=== PATIENT | female | born 1985 | race Caucasian/White ===

== ENCOUNTER 2017-08-26 18:03 | Emergency (ER) | payer SELFPAY ==
[~2017-08-26] VITALS: Ht 165.1 cm; Wt 98.0 kg
[2017-08-26] MEDS ORDERED: MEDS FOR DEPRESSION (18:20)
[2017-08-26] MEDS ORDERED: IBUPROFEN TABLET 200 MG TAB PO ONE (18:30)
--- NOTE | 2017-08-26 18:39 | ED General ---
General Chief Complaint: Cough/Cold/Flu Symptoms Stated Complaint: HEADACHE, FEVERISH Nursing Triage Note: AMB TO ROOM HAS BEEN SICK SINCE THURSDAY. WITH COUGH CONGESTION ,AND HEADACHE NEEDS NOTE FOR WORK. Nursing Sepsis Screen: No Definite Risk Source of Information: Patient Exam Limitations: No Limitations History of Present Illness Date Seen by Provider: Aug 26, 2017 Time Seen by Provider: 18:10 Initial Comments This 32 year old woman presents to the ER with complaints of flu-like symptoms including cough, congestion, headaches, sore throat and fever. She has been ill for 4 days. Tachycardia is noted but she is afebrile. She has not had any medications since about noon. She has been asleep for the last 5 hours. She complains of tight muscles in the shoulder girdle and neck. She has a throbbing left-sided headache at present. She reports her oral intake of fluids has been good and she has been urinating normally. Allergies and Home Medications Allergies Coded Allergies: No Known Drug Allergies (Unverified , 08/26/17) Home Medications [Meds For Depression] , (Reported) Constitutional: see HPI EENTM: see HPI Respiratory: see HPI Cardiovascular: see HPI Gastrointestinal: no symptoms reported Genitourinary: no symptoms reported Musculoskeletal: see HPI Skin: no symptoms reported Psychiatric/Neurological: See HPI Hematologic/Lymphatic: No Symptoms Reported Past Dtxdjir-Dgeorm-Uqfpxv Hx Patient Social History Alcohol Use: Occasionally Uses Recreational Drug Use: No Smoking Status: Never a Smoker Recent Foreign Travel: No Contact w/Someone Who Travel: No Recent Infectious Disease Expo: No Surgeries History of Surgeries: Yes Surgeries: Eye Surgery Respiratory History of Respiratory Disorde: No Cardiovascular History of Cardiac Disorders: No Neurological History of Neurological Disord: No Reproductive System : No Genitourinary History of Genitourinary Disor: No Gastrointestinal History of Gastrointestinal Di: No Musculoskeletal History of Musculoskeletal Dis: No Endocrine History of Endocrine Disorders: No HEENT History of HEENT Disorders: No Cancer History of Cancer: No Psychosocial History of Psychiatric Problem: Yes Behavioral Health Disorders: Depression Integumentary History of Skin or Integumenta: No Physical Exam Vital Signs Vital Signs - First Documented 08/26/17 18:07 Temp 97.6 Pulse 120 Resp 18 B/P (MAP) 127/91 (103) Pulse Ox 98 Capillary Refill : Less Than 3 Seconds General Appearance: WD/WN, Mild Distress (tearful) HEENT: PERRL/EOMI, TMs Normal, Normal ENT Inspection, Other (oropharynx somewhat dry and pasty without erythema) Neck: Normal Inspection, Supple Respiratory: Lungs Clear, Normal Breath Sounds, No Accessory Muscle Use, No Respiratory Distress Cardiovascular: No Edema, No Murmur, Tachycardia (regular) Gastrointestinal: Non Tender, Soft Extremity: Normal Inspection Neurologic/Psychiatric: Alert, Oriented x3, No Motor/Sensory Deficits, passenger agent II- XII Norm as Tested, Other (anxious, tearful) Skin: Normal Color, Warm/Dry Progress/Results/Core Measures Suspected Sepsis Recent Fever Within 48 Hours: No Infection Criteria Present: None New/Unexplained Altered Menta: No Sepsis Screen: No Definite Risk Sepsis Diagnosis: SIRS Temperature:97.6 Pulse: 12 Respiratory Rate: Blood Pressure 127 /91 Mean: 103 Results/Orders Micro Results Microbiology 08/26/17 Influenza Types A,B Antigen (MOIRA) - Final, Complete My Orders Orders - TAMERA RICE MD Influenza A And B Antigens (08/26/17 18:26) Tramadol Tablet (Ultram Tablet) (08/26/17 18:30) Ibuprofen Tablet (Motrin Tablet) (08/26/17 18:30) Medications Given in ED Current Medications Medications Dose Ordered Sig/Brennen Route Start Time Stop Time Status Last Admin Dose Admin Ibuprofen 600 mg ONCE ONCE PO 08/26/17 18:30 08/26/17 18:31 DC 08/26/17 18:37 600 MG Tramadol HCl 50 mg ONCE ONCE PO 08/26/17 18:30 08/26/17 18:31 DC 08/26/17 18:37 50 MG Vital Signs/I&O Vital Sign - Last 12Hours 08/26/17 18:07 Temp 97.6 Pulse 120 Resp 18 B/P (MAP) 127/91 (103) Pulse Ox 98 Capillary Refill : Less Than 3 Seconds Blood Pressure Mean: 103 Progress Note #1: Time: 18:38 Progress Note This patient was strongly encouraged to have IV fluids and workup because of the tachycardia. She refused IV or needles of any kind because "I hate needles ". She would like something for her headache. Ibuprofen and tramadol was administered. Influenza screen is pending. One of her main concerns is obtaining a note for work. Progress Note #2: Time: 19:27 Progress Note Patient had improvement in symptoms with Tylenol and Ultram. She fell sleep in the exam room. Heart rate did improve to around 100. Departure Impression Impression: Primary Impression: Flu-like symptoms Additional Impression: Acute headache Qualified Codes: R51 - Headache Disposition: 01 HOME, SELF-CARE Condition: Improved Departure-Patient Inst. Decision time for Depature: 19:27 Referrals: NO,LOCAL PHYSICIAN (PCP/Family) Primary Care Physician Patient Instructions: Flu, Adult (DC) Add. Discharge Instructions: Your symptoms are likely due to influenza or a similar virus. Drink plenty of clear liquids. You may take ibuprofen up to 600 mg every 6 hours as needed for pain or fever. Add Tylenol (acetaminophen) up to 1000 mg every 6 hours as needed for additional relief. For pain not improved with Tylenol and ibuprofen , consider using Ultram (tramadol) as prescribed. You may return to work tomorrow if you remain fever free (temperature under 100) and symptoms continue to improve. All discharge instructions reviewed with patient and/or family. Voiced understanding. Work/School Note: Work Release Form Date Seen in the Emergency Department: Aug 26, 2017 Return to Work: Aug 27, 2017 Restrictions: Return-No Fever (24hrs) TAMERA RICE MD Aug 26, 2017 18:39
[2017-08-26] MEDS ORDERED: TRAM-42 PO (19:33)
[2017-08-26 19:40] VITALS: BP 127/91
== END 2017-08-26 19:40 | disposition home or self-care (01) ==
LOC: ER 18:06
DX: J11.1 Influenza due to unidentified influenza virus with other respiratory manifestations (principal); R51 Headache; F32.9 Major depressive disorder, single episode, unspecified
CPT/HCPCS: 87804; 99283

== ENCOUNTER 2017-10-28 14:42 | Emergency (ER) | payer SELFPAY ==
[~2017-10-28 14:42] MED LIST: MEDS FOR DEPRESSION; TRAM-42 PO
== END 2017-10-28 15:31 | disposition left against medical advice (07) ==
LOC: EDUNIT# 14:42 → ER 14:44
DX: G43.909 Migraine, unspecified, not intractable, without status migrainosus (principal); R05 Cough; R09.81 Nasal congestion

== ENCOUNTER 2018-01-31 21:06 | Inpatient (IN) | payer SELFPAY ==
[~2018-01-31] VITALS: Ht 165.1 cm; Wt 85.3 kg
[2018-01-31] MEDS ORDERED: ZIPRASIDONE 20 MG INJ (GEODON) VIAL IM ONE (21:10)
[2018-01-31] MEDS ORDERED: WATER (STERILE) FOR INJECTION 20 ML ONE (21:10)
[2018-01-31 21:26] LABS: BASOPHILS # (AUTO) 0.1 10^3/uL (0.0-0.1); BASOPHILS % (AUTO) 1 % (0-10); EOSINOPHILS # (AUTO) 0.2 10^3/uL (0.0-0.3); EOSINOPHILS % (AUTO) 2 % (0-10); HEMATOCRIT 44 % (35-52); HEMOGLOBIN 14.6 G/DL (11.5-16.0); LYMPHOCYTES # (AUTO) 2.6 X 10^3 (1.0-4.0); LYMPHOCYTES % (AUTO) 23 % (12-44); MEAN CORPUSCULAR HEMOGLOBIN 28 PG (25-34); MEAN CORPUSCULAR HGB CONC 34 G/DL (32-36); MEAN CORPUSCULAR VOLUME 83 FL (80-99); MEAN PLATELET VOLUME 9.4 FL (7.4-10.4); MONOCYTES % (AUTO) 9 % (0-12); NEUTROPHILS # (AUTO) 7.3 X 10^3 (1.8-7.8); NEUTROPHILS % (AUTO) 66 % (42-75); PLATELET COUNT 503 10^3/uL (130-400); RED BLOOD COUNT 5.24 10^6/uL (4.35-5.85); RED CELL DISTRIBUTION WIDTH 13.5 % (10.0-14.5); WHITE BLOOD COUNT 11.2 10^3/uL (4.3-11.0)
--- NOTE | 2018-01-31 21:37 | ED Psychosocial ---
General Chief Complaint: Psych/Social Disorder Stated Complaint: ANXIETY Nursing Triage Note: PT EMILY IN BY EMS WITH COMPLAINT OF ANXIETY AND PSYCHOTIC BREAK. Source: patient Exam Limitations: clinical condition (JENNIFER OROZCO MD) History of Present Illness Date Seen by Provider: Jan 31, 2018 Time Seen by Provider: 21:06 Initial Comments Here by EMS with episode of acute psychosis and uncontrollable crying related to the fact that she is going to lose her children to the Court because of methamphetamine abuse. She last used methamphetamine and marijuana yesterday. She is uncontrollably crying. She states it all just doesn't matter anymore. Reports that she is methamphetamine because she is given a lose her children but also reports that she is losing her children for methamphetamine abuse. Denies suicidal ideation or homicidal ideations just states nothing really matters any more history Limited due to patient's current emotional state. Timing/Duration: this morning Severity: severe Associated Symptoms: anxiety, impaired concentration (JENNIFER OROZCO MD) Allergies and Home Medications Allergies Coded Allergies: No Known Drug Allergies (Unverified , 08/26/17) Home Medications Tramadol HCl 50 Mg Tablet, 50 MG PO Q6H PRN for PAIN-MODERATE TO SEVERE Prescribed by: TAMERA LOPEZ on 08/26/17 193 Patient Home Medication List Home Medication List Reviewed: Yes (JENNIFER OROZCO MD) Constitutional: see HPI; No chills; diaphoresis; No fever Respiratory: no symptoms reported Cardiovascular: no symptoms reported Psychiatric/Neurological: See HPI, Anxiety, Depressed, Emotional Problems Unable to complete review of systems due to uncontrollable hysteria (JENNIFER OROZCO MD) Past Qmoisgl-Xawzwb-Rnguxk Hx Past Med/Social Hx: Reviewed Nursing Past Med/Soc Hx (JENNIFER OROZCO MD) Patient Social History Alcohol Use: Denies Use Recreational Drug Use: Yes (methamphetamine and marijuana) Smoking Status: Never a Smoker Recent Foreign Travel: No Contact w/Someone Who Travel: No Recent Infectious Disease Expo: No (JENNIFER OROZCO MD) Past Medical History Surgeries: Yes Eye Surgery Respiratory: No Cardiac: No Neurological: No Genitourinary: No Gastrointestinal: No Musculoskeletal: No Endocrine: No HEENT: No Cancer: No Psychosocial: Yes Depression Integumentary: No (JENNIFER OROZCO MD) Family Medical History Reviewed Nursing Family Hx (JENNIFER OROZCO MD) Physical Exam Vital Signs - First Documented 01/31/18 21:09 Temp 98.0 Pulse 87 Resp 20 B/P (MAP) 146/90 (108) Pulse Ox 97 O2 Delivery Room Air (KEENA FLOOD MD) Capillary Refill : Less Than 3 Seconds (JENNIFER OROZCO MD) Height, Weight, BMI Height: 5'5.00" Weight: 160lbs. oz. 72.689544ha; BMI Method:Stated General Appearance: WD/WN, moderate distress, severe distress HEENT: PERRL/EOMI, pharynx normal Neck: full range of motion, supple Respiratory: lungs clear, normal breath sounds Cardiovascular: no murmur, tachycardia Gastrointestinal: non tender, soft Extremities: non-tender, normal inspection Neurologic/Psychiatric: alert, oriented x 3 Appearance/Memory: appropriate insight, neat Behavior/Eye Contact: avoids eye contact, refused to answer, other (crying incessantly) Skin: normal color, diaphoresis (JENNIFER OROZCO MD) Progress/Results/Core Measures Results/Orders Lab Results Laboratory Tests Test 01/31/18 21:20 01/31/18 21:36 Range/Units White Blood Count 11.2 H 4.3-11.0 10^3/uL Red Blood Count 5.24 4.35-5.85 10^6/uL Hemoglobin 14.6 11.5-16.0 G/DL Hematocrit 44 35-52 % Mean Corpuscular Volume 83 80-99 FL Mean Corpuscular Hemoglobin 28 25-34 PG Mean Corpuscular Hemoglobin Concent 34 32-36 G/DL Red Cell Distribution Width 13.5 10.0-14.5 % Platelet Count 503 H 130-400 10^3/uL Mean Platelet Volume 9.4 7.4-10.4 FL Neutrophils (%) (Auto) 66 42-75 % Lymphocytes (%) (Auto) 23 12-44 % Monocytes (%) (Auto) 9 0-12 % Eosinophils (%) (Auto) 2 0-10 % Basophils (%) (Auto) 1 0-10 % Neutrophils # (Auto) 7.3 1.8-7.8 X 10^3 Lymphocytes # (Auto) 2.6 1.0-4.0 X 10^3 Monocytes # (Auto) 1.0 0.0-1.0 X 10^3 Eosinophils # (Auto) 0.2 0.0-0.3 10^3/uL Basophils # (Auto) 0.1 0.0-0.1 10^3/uL Sodium Level 141 135-145 MMOL/L Potassium Level 4.5 3.6-5.0 MMOL/L Chloride Level 105 98-107 MMOL/L Carbon Dioxide Level 25 21-32 MMOL/L Anion Gap 11 5-14 MMOL/L Blood Urea Nitrogen 13 7-18 MG/DL Creatinine 0.99 0.60-1.30 MG/DL Estimat Glomerular Filtration Rate > 60 BUN/Creatinine Ratio 13 Glucose Level 104 70-105 MG/DL Calcium Level 9.7 8.5-10.1 MG/DL Total Bilirubin 0.3 0.1-1.0 MG/DL Aspartate Amino Transf (AST/SGOT) 14 5-34 U/L Alanine Aminotransferase (ALT/SGPT) 13 0-55 U/L Alkaline Phosphatase 128 40-136 U/L Total Protein 7.5 6.4-8.2 GM/DL Albumin 4.5 3.2-4.5 GM/DL TSH [place] Testing 1.94 0.35-4.94 UIU/ML Salicylates Level < 5.0 L 5.0-20.0 MG/DL Acetaminophen Level < 10 L 10-30 UG/ML Serum Alcohol < 10 <10 MG/DL Urine Color YELLOW Urine Clarity SLIGHTLY CLOUDY Urine pH 7 5-9 Urine Specific [place] 1.015 L 1.016-1.022 Urine Protein 1+ H NEGATIVE Urine Glucose (UA) NEGATIVE NEGATIVE Urine Ketones NEGATIVE NEGATIVE Urine Nitrite NEGATIVE NEGATIVE Urine Bilirubin NEGATIVE NEGATIVE Urine Urobilinogen NORMAL NORMAL MG/DL Urine Leukocyte Esterase 1+ H NEGATIVE Urine RBC (Auto) NEGATIVE NEGATIVE Urine RBC NONE /HPF Urine WBC 0-2 /HPF Urine Squamous Epithelial Cells 5-10 /HPF Urine Crystals PRESENT H /LPF Urine Amorphous Sediment MOD UVALDO URATES H /LPF Urine Bacteria NONE /HPF Urine Casts NONE /LPF Urine Mucus NEGATIVE /LPF Urine Culture Indicated NO Urine Opiates Screen NEGATIVE NEGATIVE Urine Oxycodone Screen NEGATIVE NEGATIVE Urine Methadone Screen NEGATIVE NEGATIVE Urine Propoxyphene Screen NEGATIVE NEGATIVE Urine Barbiturates Screen NEGATIVE NEGATIVE Ur Tricyclic Antidepressants Screen NEGATIVE NEGATIVE Urine Phencyclidine Screen NEGATIVE NEGATIVE Urine Amphetamines Screen POSITIVE H NEGATIVE Urine Methamphetamines Screen NEGATIVE NEGATIVE Urine Benzodiazepines Screen NEGATIVE NEGATIVE Urine Cocaine Screen NEGATIVE NEGATIVE Urine Cannabinoids Screen POSITIVE H NEGATIVE (KEENA FLOOD MD) Medications Given in ED (KEENA FLOOD MD) Vital Signs/I&O (KEENA FLOOD MD) Blood Pressure Mean: 108 Progress Progress Note : Progress Note Seen and evaluated on arrival by EMS. Geodon 20 mg IM given. We will check labs, UA and EKG for workup for this to area and acute psychosis. Monitor patient. 0000: This did get significant relief to her psychosis. Patient resting very peacefully. EKG done. Patient became tearful when she woke up for that but is back to resting. 0200: I and the nurse of both tried to speak with the patient. She does answer questions. Does not report suicidal or homicidal ideations. She is still upset about the children. She is not waking up very well though. I believe this is related to the Geodon. We will her continue to rest. No admission criteria currently. We will consider mental health follow-up as outpatient. At this point we will let her rest. Blood pressure 119/81 with heart rate of 85. 0615: Patient awake now. She is now reporting that she has been contemplating suicide and states that she has nothing to live for. She is going to miss her court appointment in [facility] today as her children are getting taken away from her for methamphetamine abuse. This seems to be the root cause of her underlying depression and desire to end her life. She states her plan is to tie concrete blocks to her feet and jump in the water. She states that she would voluntarily go to inpatient facility if one can be found. She is medically cleared for inpatient mental health treatment. We will initiate the process of finding a facility at this point. Care transferred to Dr. Flood. (JENNIFER OROZCO MD) Progress Note : Time: 07:58 Progress Note I assumed care from Dr. Orozco at change of shifts. There are apparently no inpatient psychiatric beds available. We've asked [facility] to come and evaluate the patient. 8:40 Misael from [facility] has presented to evaluate the patient. 950 a.m. Misael from [facility] determined the patient had have inpatient care. We have called the number of psych facilities and have gotten on the waiting list. Dr. Frias was kind enough to admit the patient. (KEENA FLOOD MD) Initial ECG Impression Date: Jan 31, 2018 Initial ECG Impression Time: 23:50 Initial ECG Rate: 67 Initial ECG Rhythm: Normal Sinus Initial ECG Comparisson: No Previous ECG Available Comment Sinus rhythm with normal axis.ST elevation [facility]. No previous available for comparison. Interpreted by me. (JENNIFER OROZCO MD) Departure Communication (Admissions) Time/Spoke to Admitting Phy: 09:51 Dr. Frias. (KEENA FLOOD MD) Impression Primary Impression: Suicidal ideations Additional Impressions: Psychosis Qualified Codes: F23 - Brief psychotic disorder Depression Qualified Codes: F32.89 - Other specified depressive episodes Disposition: 09 ADMITTED INPATIENT Condition: Unchanged Admissions Decision to Admit Reason: Admit from ER (General) Decision to Admit/Date: Feb 01, 2018 Time/Decision to Admit Time: 09:52 (KEENA FLOOD MD) Departure-Patient Inst. Referrals: NO,LOCAL PHYSICIAN (PCP/Family) Primary Care Physician JENNIFER OROZCO MD Jan 31, 2018 21:36 KEENA FLOOD MD Feb 01, 2018 08:00
[2018-01-31 21:44] LABS: BILIRUBIN,URINE NEGATIVE (NEGATIVE); CLARITY,URINE SLIGHTLY CLOUDY; COLOR,URINE YELLOW; GLUCOSE, URINE (UA) NEGATIVE (NEGATIVE); KETONES,URINE NEGATIVE (NEGATIVE); LEUKOCYTE ESTERASE ,URINE 1+ (NEGATIVE); NITRITE,URINE NEGATIVE (NEGATIVE); PH,URINE 7 (5-9); PROTEIN,URINE 1+ (NEGATIVE); UROBILINOGEN,URINE NORMAL (NORMAL)
[2018-01-31 21:45] LABS: ALANINE AMINOTRANSFERASE 13 U/L (0-55); ALBUMIN 4.5 GM/DL (3.2-4.5); ALKALINE PHOSPHATASE 128 U/L (40-136); BILIRUBIN,TOTAL 0.3 MG/DL (0.1-1.0); BUN/CREATININE RATIO 13; CALCIUM 9.7 MG/DL (8.5-10.1); CARBON DIOXIDE 25 MMOL/L (21-32); CHLORIDE 105 MMOL/L (98-107); CREATININE SERUM 0.99 MG/DL (0.60-1.30); GFR ESTIMATED > 60; GLUCOSE 104 MG/DL (70-105); POTASSIUM 4.5 MMOL/L (3.6-5.0); SALICYLATE < 5.0 MG/DL (5.0-20.0); SODIUM 141 MMOL/L (135-145); TOTAL PROTEIN 7.5 GM/DL (6.4-8.2)
[2018-01-31 21:51] LABS: ACETAMINOPHEN < 10 UG/ML (10-30)
[2018-01-31 21:53] LABS: WBC,URINE 0-2 /HPF
[2018-01-31 21:54] LABS: AMORPHOUS SEDIMENT,UR MOD AMOR URATES /LPF
[2018-01-31 22:02] LABS: AMPHETAMINE SCREEN, URINE POSITIVE (NEGATIVE); BARBITURATE SCREEN URINE NEGATIVE (NEGATIVE); BENZODIAZEPINES SCREEN URINE NEGATIVE (NEGATIVE); CANNABINOID SCREEN, URINE POSITIVE (NEGATIVE); COCAINE SCREEN URINE NEGATIVE (NEGATIVE); METHADONE STAT NEGATIVE (NEGATIVE); METHAMPHETAMINE SCREEN URINE S NEGATIVE (NEGATIVE); OPIATE SCREEN URINE NEGATIVE (NEGATIVE); OXYCODONE STAT NEGATIVE (NEGATIVE); PROPOXYPHENE STAT NEGATIVE (NEGATIVE); TRICYCLIC ANTIDEPRESSANTS SCRE NEGATIVE (NEGATIVE)
[2018-02-01 12:00] VITALS: BP 130/88
[2018-02-01] MEDS ORDERED: ZIPRASIDONE 20 MG (GEODON) CAP PO PRN (12:00)
--- OUTSIDE RECORDS SUMMARY | 2018-02-01 13:24 | XMS REPORT ---
Author Author FRANCHESKA Tracey [facility] Address [address] [place] [address] Care Team Providers Care Patient Appointment Coordinator Name Role Phone FRANCHESKA Tracey Unavailable PROBLEMS Unknown Problems ALLERGIES No Known Allergies ENCOUNTERS Encounter Location Date Diagnosis [facility] [address] [address] Oct, [facility] [id number] [place] [phone] Apr, [facility] [id number] [place] [phone] Apr, Back pain, thoracic M54.6 and Homeless Z59.0 [facility] [id number], [place] [address] Jun, [facility] [id number] [id number] Jan, IMMUNIZATIONS No Known Immunizations SOCIAL HISTORY Never Assessed REASON FOR VISIT pt screaming in waiting room. brought back to room and pt complaing of middle back pain for a week. reports the pain is worse today. denies any injury. [email or web address] PLAN OF CARE Activity Details Follow Up prn Reason: VITAL SIGNS Height 65 in 2017-04-23 Weight 225.6 lbs 2017-04-23 Temperature 98.2 degrees Fahrenheit 2017-04-23 Heart Rate 88 bpm 2017-04-23 Respiratory Rate 18 2017-04-23 BMI 37.54 kg/m2 2017-04-23 Blood pressure systolic 136 mmHg 2017-04-23 Blood pressure diastolic 84 mmHg 2017-04-23 MEDICATIONS Medication Instructions Dosage Frequency Start Date End Date Duration Status Cyclobenzaprine HCl 5 MG Orally Three times a day 1 tablet as needed 8h 05 Oct, 2017 10 Oct, 2017 5 days Active Trazodone HCl 100 MG Orally Once a day 1 tablet at bedtime 24h Active Ibuprofen 800 MG Orally Three times a day 1 tablet 8h Apr, May, 30 day(s) Active RESULTS No Results PROCEDURES No Known procedures INSTRUCTIONS MEDICATIONS ADMINISTERED No Known Medications
--- NOTE | 2018-02-01 14:54 | History & Physical-Hospitalist ---
History of Present Illness HPI/Chief Complaint The patient is a 32-year-old white female who presented to the emergency room with stated thoughts of self-harm. After 14 hours in the emergency room no beds were available for her at any mental health facility in the region. She was admitted inpatient while efforts continued to secure a transfer. It Is also stated that she was to have a court hearing today relative to the removal of children from her home. She is a known amphetamine user and abuser. Source: patient Exam Limitations: no limitations Date Seen 02/01/18 Time Seen by Provider: 14:49 Attending Physician Zach Rockwell MD PCP No,Local Physician Referring Physician Date of Admission Feb 01, 2018 at 10:03 Home Medications & Allergies Home Medications Reviewed patient Home Medication Reconciliation performed by pharmacy medication reconciliations digital cartographic technician and/or nursing. Patients Allergies have been reviewed. Allergies Allergies Coded Allergies No Known Drug Allergies (Unverified08/26/17) Past Rbirqos-Vsscwm-Kpovaf Hx Past Med/Social Hx: Reviewed Nursing Past Med/Soc Hx Patient Social History Alcohol Use: Occasionally Uses Alcohol Beverage of Choice: Beer Recreational Drug Use: Yes (methamphetamine and marijuana) Drug of Choice: METH, MARIJUANA Smoking Status: Never a Smoker Physical Abuse Screen: No Sexual Abuse: No Recent Foreign Travel: No Contact w/other who traveled: No Recent Hopitalizations: No Recent Infectious Disease Expo: No Immunizations Up To Date Tetanus Booster (TDap): Unknown Pediatric: Yes Seasonal Allergies Seasonal Allergies: No Past Medical History Surgeries: Eye Surgery HEENT: Glaucoma Loss of Vision: Bilateral Hearing Impairment: Denies Psychosocial: Anxiety, Depression History of Blood Disorders: No Family History Reviewed Nursing Family Hx Alcoholism 17 MOTHER Review of Systems Constitutional: see HPI EENTM: no symptoms reported Respiratory: no symptoms reported Cardiovascular: no symptoms reported Gastrointestinal: no symptoms reported Genitourinary: no symptoms reported Musculoskeletal: no symptoms reported Skin: no symptoms reported Psychiatric/Neurological: No Symptoms Reported Physical Exam Physical Exam Vital Signs Vital Signs - First Documented 01/31/18 21:09 Temp 98.0 Pulse 87 Resp 20 B/P (MAP) 146/90 (108) Pulse Ox 97 O2 Delivery Room Air Capillary Refill : Less Than 3 Seconds Height, Weight, BMI Height: 5'5.00" Weight: 188lbs. 0.0oz. 85.306079lj; 31.3 BMI Method:Stated General Appearance: Other HEENT: Normal ENT Inspection Neck: Normal Inspection Respiratory: Chest Non Tender, Lungs Clear, Normal Breath Sounds, No Accessory Muscle Use, No Respiratory Distress Cardiovascular: Regular Rate, Rhythm, No Edema, No Gallop, No JVD, No Murmur, Normal Peripheral Pulses Gastrointestinal: Other (obese) Results Results/Procedures Labs Laboratory Tests 01/31/18 21:20 Patient resulted labs reviewed. Assessment/Plan Admission Diagnosis Stated suicidal ideation. 2.methamphetamine abuse Admission Status: Observation Clinical Quality Measures DVT/VTE Risk/Contraindication: Risk Factor Score Per Nursin RFS Level Per Nursing on Admit: 1=Low/No VTE PPX ZACH ROCKWELL MD Feb 01, 2018 14:54
[2018-02-01 15:45] VITALS: BP 124/76
[2018-02-01 19:35] VITALS: BP 125/75
[2018-02-02 00:42] VITALS: BP 133/78
[2018-02-02 04:29] VITALS: BP 124/75
[2018-02-02 08:00] VITALS: BP 132/86
--- NOTE | 2018-02-02 15:28 | Progress Note-Hospitalist ---
Progress Note Progress Notes/Assess & Plan Date Seen 02/02/18 Time Seen by Provider: 15:27 Assessment & Plan The patient was more alert today than yesterday. She appears rather glum. Pastoral care was in the room during this visit. She was informed that social worker aide has continued to try to locate an inpatient psych facility for her but has been unable to do so as all seemed to have no available beds. EMY ROCKWELL MD Feb 02, 2018 15:28
[2018-02-02 16:49] VITALS: BP 115/63
[2018-02-02] MEDS: ACETAMINOPHEN 325 MG TABLET PO PRN (18:31)
[2018-02-03 00:30] VITALS: BP 126/80
[2018-02-03 08:23] VITALS: BP 130/74
--- NOTE | 2018-02-03 13:21 | Progress Note-Hospitalist ---
Subjective HPI/CC On Admission Date Seen by Provider: Feb 03, 2018 Time Seen by Provider: 12:00 The patient is a 32-year-old white female who presented to the emergency room with stated thoughts of self-harm. After 14 hours in the emergency room no beds were available for her at any mental health facility in the region. She was admitted inpatient while efforts continued to secure a transfer. It Is also stated that she was to have a court hearing today relative to the removal of children from her home. She is a known amphetamine user and abuser. Subjective/Events-last exam Patient is hysterical today and very anxious about going home to take care of her dog. She says that the dog was given to her by God and she doesn't know what she's can do something happens to him. She just had her right severed with her children and she has been suicidal since then. She will not contract with me that if released she would go home and not hurt herself. Multiple staff has been working with the patient to try and solve her multiple problems. To date we have not been able to find placement for her for inpatient rehabilitation. Objective Exam Vital Signs Vital Signs Date Time Temp Pulse Resp B/P (MAP) Pulse Ox O2 Delivery O2 Flow Rate FiO2 02/03/18 08:23 97.9 76 16 130/74 (92) 97 Room Air Capillary Refill : Less Than 3 Seconds General Appearance: Severe Distress HEENT: Normal ENT Inspection Neck: Non Tender Respiratory: Lungs Clear, Normal Breath Sounds, No Respiratory Distress Cardiovascular: Regular Rate, Rhythm, No Murmur Gastrointestinal: Normal Bowel Sounds, Soft Rectal: Deferred Neurologic/Psychiatric: Alert, Oriented x3 Results/Procedures Lab Patient resulted labs reviewed. Assessment/Plan Assessment and Plan Assess & Plan/Chief Complaint 1. History of methamphetamine 2. Suicidal ideation 3. Severe stress related to terminated rights with her children Will continue to look for inpatient placement for rehabilitation Clinical Quality Measures DVT/VTE Risk/Contraindication: Risk Factor Score Per Nursin RFS Level Per Nursing on Admit: 1=Low/No VTE PPX MARIE ZHANG MD Feb 03, 2018 13:21
[2018-02-03 16:00] VITALS: BP 115/69
[2018-02-03] MEDS: ACETAMINOPHEN 325 MG TABLET PO PRN (20:06)
[2018-02-04 00:01] VITALS: BP 130/75
[2018-02-04 07:50] VITALS: BP 117/81
[2018-02-04] MEDS ORDERED: ZIPR20CA24 PO ×2 (14:36→14:44)
--- NOTE | 2018-02-04 14:50 | Discharge Summary-Hospitalist ---
Diagnosis/Chief Complaint Date of Admission Feb 01, 2018 at 10:03 Date of Discharge February 04, 2018 Discharge Date: Feb 04, 2018 Discharge Time: 16:00 Admission Diagnosis Stated suicidal ideation. 2.methamphetamine abuse Discharge Diagnosis Suicidal ideation Methamphetamine abuse Poor social situation Discharge Summary Procedures/Consulations [facility] Discharge Physical Exam Allergies: Coded Allergies: No Known Drug Allergies (Unverified , 08/26/17) Vitals & I&Os Vital Signs Date Time Temp Pulse Resp B/P (MAP) Pulse Ox O2 Delivery O2 Flow Rate FiO2 02/04/18 07:50 98.5 63 16 117/81 (93) 99 Room Air General Appearance: Alert, Oriented X3, Cooperative HEENT: PERRLA Respiratory: Clear to Auscultation Cardiovascular: Regular Rate, Normal S1, Normal S2 Abdominal: Normal Bowel Sounds Extremities: No Edema Skin: No Rashes Neuro: Normal Gait, Normal Speech, Strength at 5/5 X4 Ext, Cranial Nerves 3-12 NL Psych/Mental Status: Other (Appropriate and compliant with the plan to stay clean for follow-up with physicians and mental health at [facility] and to have restored visitation with her children) Hospital Course This is a 32-year-old troubled female with a history of methamphetamine abuse. She has recently undergone a process that we'll end up with termination of the rights to visit her children who have been in foster care. She had already lost 1 child in foster care to . Being faced with that option she became suicidal and had a plan to tire self to concrete blocks and drown herself. Throughout this hospitalization intermittently she is been very agitated and angry and threatening to go AMA. She then had trouble with disposition of her dog and that seemed to just about pressure over the edge. She was agreeable to inpatient rehabilitation but then after having visited with [facility] and her [facility] spring encaser she has finally envision a solution and a plan for improvement. She contracts with pa to not self harm and is appropriate , calm, and has a plan in place and is looking forward to reinstating visits with her children. Termination of her rights has been moved to sometime perhaps in April unless she follows the steps. She is looking forward to a successful transition. Labs (last 24 hrs) Patient resulted labs reviewed. Discussion & Recommendations Discharge Planning: >30 minutes discharge planning Discharge Home Medications: Active Scripts Active Condition at discharge Stable Instructions to patient/family Please see electronic discharge instructions given to patient. Clinical Quality Measures DVT/VTE Risk/Contraindication: Risk Factor Score Per Nursin RFS Level Per Nursing on Admit: 1=Low/No VTE PPX Copy Copies To 1: [facility]/MARIE RANDALL MD Feb 04, 2018 14:50
[2018-02-04 15:35] VITALS: BP 126/74
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
[2018-02-04 16:00] VITALS: BP 126/74
--- NOTE | 2018-02-16 21:39 | Physician Query Clarification ---
PQ-Uncertain Diagnosis Admission/Discharge Admission Date: Feb 01, 2018 at 10:03 Discharge Date: Feb 04, 2018 at 16:00 The medical record reflects the following clinical scenario: History/Risk Factors: suicidal ideation Clinical Findings: meth abuse, stress Treatment: discharge planning Question: Is Major Depressive Disorder, recurrent, moderate a clinically valid diagnosis? Major Depressive Disorder, recurrent, moderate was documented in the Psychiatric Consultation with no further documentation in the medical record. Please document a response below. PHYSICIAN RESPONSE Diagnosis clinically valid: Yes, Conditon resolved Explanation of clincal finding This is a valid ongoing diagnosis not resolved In responding to this query, please exercise your independent professional judgment. The purpose of this communication is to more accurately reflect the complexity of your patients condition. The fact that a question is asked does not imply that any particular answer is desired or expected. Thank you for your timely response to this clarification. Requestors name: [ ] Phone # [ ] THIS PHYSICIAN QUERY FORM IS A PERMANENT PART OF THE MEDICAL RECORD REINALDO MACKENZIE Feb 16, 2018 21:39 MARIE ZHANG MD Feb 17, 2018 10:20
== END 2018-02-04 16:00 | disposition home or self-care (01) | DRG 885 ==
LOC: EDUNIT# 21:06 → ER 21:08 → 4TH 02-01 10:03
PROVIDERS: ADMIT Internal Medicine; ATTEND Internal Medicine
DX: F33.1 Major depressive disorder, recurrent, moderate (principal); R45.851 Suicidal ideations; F23 Brief psychotic disorder; F15.10 Other stimulant abuse, uncomplicated; F12.10 Cannabis abuse, uncomplicated; F41.9 Anxiety disorder, unspecified
CPT/HCPCS: 36415; 80053; 80306; 80320; 80329; 81000; 84443; 84703; 85025; 93005; 93041; 96372

== ENCOUNTER 2019-03-31 05:55 | Inpatient (IN) | payer MEDICAID ==
[2019-03-31] VITALS (38 sets, daily range): BP systolic 127–181; BP diastolic 64–128
[~2019-03-31] VITALS: Ht 162.6 cm; Wt 111.1 kg
[~2019-03-31 05:55] MED LIST changes: +ZIPR20CA24 PO
[2019-03-31] MEDS ORDERED: AMPICILLIN FOR IV USE 2,000 MG in WATER (STERILE) FOR INJECTION 14.8 ML IV SCH (06:03)
[2019-03-31] MEDS ORDERED: D5 LR IV SOLUTION 1,000 ML IV SCH (06:03)
--- NOTE | 2019-03-31 06:05 | NUR ---
TRACI SEGURA presented to unit via ambulation from home/ED, accompanied by self, for INDUCTION. TRACI SEGURA weighed, gowned, voided, and to bed. EFHM and TOCO applied, VS taken. TRACI SEGURA oriented to bed controls, call light, TV, heat, and A/C controls.
[2019-03-31] MEDS ORDERED: PREN-142 PO (06:09)
[2019-03-31] MEDS ORDERED: CALC10009 PO (06:09)
[2019-03-31] MEDS ORDERED: ERYTHROMYCIN OPHTH OINT 1 GM (SINGLE USE) TUBE ONE (06:11)
[2019-03-31] MEDS ORDERED: PETROLATUM JELLY(VASELINE) 49 GM JAR ONE (06:11)
[2019-03-31] MEDS ORDERED: PHYTONADIONE (VIT. K) NEONATAL 1 MG/0.5 ML AMP ONE (06:11)
[2019-03-31] MEDS ORDERED: WATER (STERILE) FOR INJECTION 20 ML ONE (06:11)
[2019-03-31] MEDS ORDERED: AMPICILLIN FOR IV USE 2,000 MG VIAL ONE (06:11)
[2019-03-31] MEDS ORDERED: D5 LR IV SOLUTION 1,000 ML IV ONE (06:12)
[2019-03-31] MEDS ORDERED: MEPIVACAINE (CARBOCAINE) 2% 50 ML VIAL INJ PRN (06:15)
[2019-03-31] MEDS ORDERED: MINERAL OIL CONCENTRATE 99.9% 15 ML UDC TOP PRN (06:15)
[2019-03-31 06:45] LABS: BASOPHILS % (AUTO) 0 % (0-10); EOSINOPHILS # (AUTO) 0.2 10^3/uL (0.0-0.3); EOSINOPHILS % (AUTO) 1 % (0-10); HEMATOCRIT 35 % (35-52); HEMOGLOBIN 11.8 G/DL (11.5-16.0); LYMPHOCYTES # (AUTO) 2.6 X 10^3 (1.0-4.0); LYMPHOCYTES % (AUTO) 15 % (12-44); MEAN CORPUSCULAR HEMOGLOBIN 28 PG (25-34); MEAN CORPUSCULAR HGB CONC 34 G/DL (32-36); MEAN CORPUSCULAR VOLUME 82 FL (80-99); MEAN PLATELET VOLUME 10.6 FL (7.4-10.4); MONOCYTES # (AUTO) 1.1 X 10^3 (0.0-1.0); MONOCYTES % (AUTO) 6 % (0-12); NEUTROPHILS % (AUTO) 77 % (42-75); PLATELET COUNT 298 10^3/uL (130-400); RED CELL DISTRIBUTION WIDTH 14.4 % (10.0-14.5); WHITE BLOOD COUNT 16.9 10^3/uL (4.3-11.0)
[2019-03-31 07:10] LABS: AMPHETAMINE SCREEN, URINE NEGATIVE (NEGATIVE); BARBITURATE SCREEN URINE NEGATIVE (NEGATIVE); BENZODIAZEPINES SCREEN URINE NEGATIVE (NEGATIVE); CANNABINOID SCREEN, URINE NEGATIVE (NEGATIVE); COCAINE SCREEN URINE NEGATIVE (NEGATIVE); METHADONE STAT NEGATIVE (NEGATIVE); METHAMPHETAMINE SCREEN URINE S NEGATIVE (NEGATIVE); OPIATE SCREEN URINE NEGATIVE (NEGATIVE); OXYCODONE STAT NEGATIVE (NEGATIVE); PROPOXYPHENE STAT NEGATIVE (NEGATIVE); TRICYCLIC ANTIDEPRESSANTS SCRE NEGATIVE (NEGATIVE)
[2019-03-31] MEDS ORDERED: SUFENTA 0.6MCG/ML BUPIVA 0.125 100 ML ONE (07:30)
[2019-03-31] MEDS ORDERED: OXYTOCIN/NORMAL SALINE 500 ML IV SCH ×2 (07:30→10:16)
--- NOTE | 2019-03-31 07:30 | History & Physical-OB ---
OB - Chief Complaint & HPI Date/Time Date of Admission: Date of Admission: Mar 31, 2019 at 05:55 Date seen by a Provider: Mar 31, 2019 Time Seen by a Provider: 07:20 Chief Complaint/History OB-Reason for Admission/Chief: Induction of Labor Hx : 5 Hx Para: 4 Expected Date of Delivery: Mar 31, 2019 Gestational Age in Weeks: 39 Gestational Age in Days: 5 Admission Nurse Assessment Rev: Yes History of Labs GBS positive Allergies and Home Medications Allergies Coded Allergies: No Known Drug Allergies (Unverified , 08/26/17) Home Medications Calcium Carbonate 400 Mg Tab.chew, 400 MG PO PRN, (Reported) Vit No.124/Iron/FA 1 Each Tablet, 1 EACH PO DAILY, (Reported) Patient Home Medication List Home Medication List Reviewed: Yes OB - History Hx of Present Care: Yes Ultrasounds: Normal mid trimester US Obstetrical Complications: None Medical Complications: None Patient Past Medical History no chronic medical problems Immunizations Tetanus Booster (TDap): Unknown OB - Admission Exam Physical Exam Vitals: Vital Signs 03/31/19 03/31/19 06:18 06:31 Temp 36.6 Pulse 111 Resp 18 B/P (MAP) 155/72 HEENT: Moist Membranes Heart: Rhythm Normal Lungs: Clear Abdomen: Gravid Cervical Dilatation: 2cm Effacement: 75% Station: -3 Membranes: Intact Heart Rate: 140's Accelerations: Accelerations Present Short Term Variability: Present Fire Fighters Dispatcher Variability: Average (6-25) Contractions on Admission: < 5 Minutes Apart Intensity: Mild Croft Scoring Tool (Modified) Dilation (cm): 1-2cm (1) Effacement (%): 51-79% (2) Descent/Station: -3 (0) Cervix Consistency: Medium(1) Cervix Position: Middle/Mid-Position (1) Add 1 point for: Each previous vaginal delivery (1) Croft Score: 8 Labs Laboratory Tests Test 03/31/19 06:05 03/31/19 06:25 Range/Units Urine Opiates Screen NEGATIVE NEGATIVE Urine Oxycodone Screen NEGATIVE NEGATIVE Urine Methadone Screen NEGATIVE NEGATIVE Urine Propoxyphene Screen NEGATIVE NEGATIVE Urine Barbiturates Screen NEGATIVE NEGATIVE Ur Tricyclic Antidepressants Screen NEGATIVE NEGATIVE Urine Phencyclidine Screen NEGATIVE NEGATIVE Urine Amphetamines Screen NEGATIVE NEGATIVE Urine Methamphetamines Screen NEGATIVE NEGATIVE Urine Benzodiazepines Screen NEGATIVE NEGATIVE Urine Cocaine Screen NEGATIVE NEGATIVE Urine Cannabinoids Screen NEGATIVE NEGATIVE White Blood Count 16.9 H 4.3-11.0 10^3/uL Red Blood Count 4.26 L 4.35-5.85 10^6/uL Hemoglobin 11.8 11.5-16.0 G/DL Hematocrit 35 35-52 % Mean Corpuscular Volume 82 80-99 FL Mean Corpuscular Hemoglobin 28 25-34 PG Mean Corpuscular Hemoglobin Concent 34 32-36 G/DL Red Cell Distribution Width 14.4 10.0-14.5 % Platelet Count 298 130-400 10^3/uL Mean Platelet Volume 10.6 H 7.4-10.4 FL Neutrophils (%) (Auto) 77 H 42-75 % Lymphocytes (%) (Auto) 15 12-44 % Monocytes (%) (Auto) 6 0-12 % Eosinophils (%) (Auto) 1 0-10 % Basophils (%) (Auto) 0 0-10 % Neutrophils # (Auto) 13.0 H 1.8-7.8 X 10^3 Lymphocytes # (Auto) 2.6 1.0-4.0 X 10^3 Monocytes # (Auto) 1.1 H 0.0-1.0 X 10^3 Eosinophils # (Auto) 0.2 0.0-0.3 10^3/uL Basophils # (Auto) 0.0 0.0-0.1 10^3/uL OB - Assessment/Plan/Diagnosis Assessment Assessment: induction of labor (at 39w5d) Admission Dx 1. IUP at term 39w5d Admission Status: Inpatient Order (span 2 midnights) Reason for Inpatient Admission: L&D Plan Plan: Induction Induction Method: AROM Other Plan -pitocin as needed -patient desires epidural WILLIAM TAVERAS MD Mar 31, 2019 07:30
[2019-03-31 07:32] LABS: LYMPHOCYTES % (MANUAL) 9 %; MONOCYTES % (MANUAL) 4 %; NEUTROPHILS % (MANUAL) 87 %; RBC MORPH NORMAL
--- NOTE | 2019-03-31 08:01 | NUR ---
0801 Janeth ANDERS CRNA here for epidural placement. Procedure explained, consent reviewed and signed by anesthesia. Questions answered to patient's satisfaction. Time out taken to verify correct patient/procedure. 0805 Patient up to side of bed, assisted into sitting position. 0809 Betadine prep done x3 and sterile drape applied. 0812 Local done, see anesthesia record. 0816 Test dose given, see anesthesia record for drug and dosage. 0817 Test dose #2 given, see anesthesia record for drug and dosage. Epidural catheter secured in place. Epidural placement complete. 0823 Assisted back into bed, monitors adjusted. Epidural dosed, see anesthesia record. Epidural of Sufenta/Bupvicaine @12cc/hr stated per pump. Patient tolerated procedure well.
[2019-03-31] MEDS ORDERED: fentaNYL INJECTION 100 MCG/2 ML AMP ONE (08:19)
[2019-03-31] MEDS ORDERED: BUPIVACAINE 0.25% 30 ML (SENSORCAINE) VIAL ONE (08:28)
[2019-03-31] MEDS ORDERED: LACTATED RINGERS 1,000 ML IV ONE ×2 (08:55→08:56)
[2019-03-31] MEDS ORDERED: diphenhydrAMINE 50 MG/ML INJ (BENADRYL) IV PRN ×2 (09:00)
[2019-03-31] MEDS ORDERED: ONDANSETRON 4 MG/2 ML (SDV) Z0FRAN IV PRN ×2 (09:00)
[2019-03-31] MEDS ORDERED: EPIDURAL (SUFENTA 0.6MCG/ML BUPIVA 0.125%) 100 ML BAG EPI PRN ×2 (09:00)
[2019-03-31] MEDS ORDERED: METOCLOPRAMIDE INJ 10 MG/2 ML (REGLAN) IV PRN ×2 (09:00)
[2019-03-31] MEDS ORDERED: NALOXONE 0.4 MG/ML 1 ML (NARCAN) VIAL IV PRN ×4 (09:00)
[2019-03-31] MEDS ORDERED: AMPICILLIN FOR IV USE 1,000 MG in WATER (STERILE) FOR INJECTION 7.4 ML IV SCH (10:15)
--- NOTE | 2019-03-31 10:16 | OB Labor & Delivery Record ---
L&D History Date of Service Date of Service: Mar 31, 2019 History Expected Date of Delivery: Mar 31, 2019 Gestational Age in Weeks: 39 Hx : 5 Hx Para: 4 Complications Events: Routine care Operative Indications (Cesarea: N/A-Vaginal Delivery Intrapartal Events: None L&D Stage1 Stage One Onset of Labor - Date: Mar 31, 2019 Onset of Labor - Time: 07:10 Monitors and Tracing Monitor Mode: Internal Heart Rate: 135 Monitor Accelerations: Uniform Monitor Decelerations: Variable Mcc Variability: Average (6-10) Short Term Variability: Present Presentation: Vertex Vital Signs VS - Last 72 Hours, by Label 03/31/19 03/31/19 06:18 06:31 Temp 36.6 Pulse 113 111 Resp 18 B/P (MAP) 176/85 155/72 Signs of Distress by FHT Signs of Distress no Rupture of Membranes Spontaneous Ruture of Membrane: No Amniotic Membrane Rupture Time: 07:10 Amniotic Membrane Fluid Desc.: Yellow (light) L&D Stage2 Stage Two Stage II Date: Mar 31, 2019 Stage II Time: 09:51 Monitors and Tracing Monitor Mode: Internal Heart Rate: 135 Monitor Accelerations: Uniform Monitor Decelerations: Variable Mcc Variability: Average (6-10) Position: Left Occiput Anterior Presentation: Vertex Signs of Distress by FHT Signs of Distress no Cord Descript/Complications Cord Vessel Description: 3 Vessels Delivery Type Delivery Method: Spontaneous Vaginal Anterior Shoulder: Left Episiotomy/Perineal Laceration Laceraction(s)/Extensions: Yes Episiotomy Description: Midline Sutures Used: Vicryl Condition of Delivery 1 minute Comment: 8 5 minute Comment: 9 Condition of Infant Condition of Infant: Living Exam: No Observed Abnormalities Resuscitation Resuscitation: N/A - Spontaneous Resp L&D Stage3 Stage Three Stage III Date: Mar 31, 2019 Stage III Time: 09:56 Pictocin Pitocin ml/hr: 125 Placenta Delivery Placenta Delivery: Spontaneous Delivery Summary Summary Estimated blood loss (mL): 250 Condition of Delivery Examined: Cervix Examined Post Hemorrhage: No Intervention Required none WILLIAM TAVERAS MD Mar 31, 2019 10:16
[2019-03-31] MEDS ORDERED: MEASLES,MUMPS,RUBELLA 1 EA INJ SQ ONE (10:30)
[2019-03-31] MEDS ORDERED: BENZOCAINE/MENTHOL (DERMOPLAST) 56 ML CAN TP PRN (10:30)
[2019-03-31] MEDS ORDERED: TETANUS,DIPTH,PERTUSS P/F (BOOSTRIX) 0.5 ML VIAL IM ONE (10:30)
[2019-03-31] MEDS: IBUPROFEN 600 MG (MOTRIN) TAB PO SCH ×2 (12:12→17:46)
[2019-03-31] MEDS: WITCH HAZEL(TUCKS) 40 EA JAR TOP PRN (12:12)
[2019-03-31] MEDS: ACETAMINOPHEN 500 MG TAB (TYLENOL) PO SCH ×2 (12:12→21:11)
--- NOTE | 2019-03-31 13:00 | NUR ---
REFER TO LABOR FLOW SHEET. PT ASSISTED UP TO THE BATHROOM WITH STAND BY ASSIST X2. + VOID, + PERICARE; DERMOPLAST SPRAY AND TUCK PADS UTILIZED. NEW PAD AND PANTIES ON. NEW GOWN. PT REMAINS UP IN ROOM, BELONGINGS GATHERED. PT AMBULATES FROM [id number] TO [id number] IN STABLE CONDITION ACC. BY THIS RN, MARILEE RN STUDENT AND INFANT. PT TO BED. TEACHING DONE RE: ROOM SURROUNDINGS, BATHROOM SUPPLIES AND INFO PACKET. PT DENIES ANY NEEDS OR QUESTIONS AT THIS TIME. CALL LIGHT WITHIN REACH. POC REVIEWED WITH PT, PT VERBALIZES UNDERSTANDING AND IS PREPPING TO GET SOME REST.
[2019-03-31] MEDS ORDERED: CATHETER FLUSH 10 ML SYR IV SCH ×2 (14:00)
--- NOTE | 2019-03-31 15:45 | NUR ---
PT SITTING UP IN BED, HOLDING INFANT. VISITOR PRESENT. VS OBTAINED. PT DENIES ANY PAIN OR NEEDS AT THIS TIME, VOICES THAT HER NAP REALLY HELPED HER. CALL LIGHT WITHIN REACH.
--- NOTE | 2019-03-31 16:05 | NUR ---
CARE ASSUMED OF THIS PT.
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
--- NOTE | 2019-03-31 17:45 | NUR ---
VSS. FF U/1. VAG FLOW LT/MOD RUBRA. ORDERING DINNER. S.O. AND HIS CHILD AT BEDSIDE. DECLINES AN ICE PACK AT THIS TIME TO PERINEUM. DENIES PAIN UNLESS MOVING CERTAIN WAYS. ROUTINE MOTRIN GIVEN.
--- NOTE | 2019-03-31 18:38 | NUR ---
EATING DINNER. S.O. LEFT. DENIES ANY WANTS OR NEEDS.
[2019-03-31] MEDS: DOCUSATE SODIUM 100 MG (COLACE) CAP PO SCH (21:11)
[2019-04-01 00:39] VITALS: BP 133/85
[2019-04-01] MEDS: WITCH HAZEL(TUCKS) 40 EA JAR TOP PRN (00:39)
[2019-04-01] MEDS: IBUPROFEN 600 MG (MOTRIN) TAB PO SCH ×3 (00:39→13:09)
[2019-04-01 04:16] VITALS: BP 130/90
[2019-04-01] MEDS: ACETAMINOPHEN 500 MG TAB (TYLENOL) PO SCH ×3 (04:16→13:10)
[2019-04-01 06:49] LABS: BASOPHILS % (AUTO) 0 % (0-10); EOSINOPHILS # (AUTO) 0.2 10^3/uL (0.0-0.3); EOSINOPHILS % (AUTO) 1 % (0-10); HEMATOCRIT 29 % (35-52); HEMOGLOBIN 9.6 G/DL (11.5-16.0); LYMPHOCYTES # (AUTO) 2.9 X 10^3 (1.0-4.0); LYMPHOCYTES % (AUTO) 19 % (12-44); MEAN CORPUSCULAR HEMOGLOBIN 29 PG (25-34); MEAN CORPUSCULAR HGB CONC 34 G/DL (32-36); MEAN CORPUSCULAR VOLUME 85 FL (80-99); MEAN PLATELET VOLUME 10.7 FL (7.4-10.4); MONOCYTES % (AUTO) 7 % (0-12); NEUTROPHILS # (AUTO) 10.9 X 10^3 (1.8-7.8); NEUTROPHILS % (AUTO) 73 % (42-75); PLATELET COUNT 238 10^3/uL (130-400); RED CELL DISTRIBUTION WIDTH 14.1 % (10.0-14.5); WHITE BLOOD COUNT 14.9 10^3/uL (4.3-11.0)
--- NOTE | 2019-04-01 07:20 | NUR ---
DR. COLEMAN HERE. Addendum: 04/01/19 at 1445 by JOHN LOCKETT RN DR. TAVERAS
--- NOTE | 2019-04-01 08:30 | NUR ---
A.M. ASSESSMENT COMPLETED. VSS. PT INQUIRING ABOUT . INFORMED OF INFANT BREATHING FAST AND PLAN FOR AN X-RAY. PT UPSET AND REASSURANCE GIVEN.
--- NOTE | 2019-04-01 08:33 | Anesthesia-Regional Post-Op ---
Regional Patient Condition Mental Status: Alert, Oriented x3 Circulation: Same as Pre-Op Headache: Absent Sensation: Full Recovery Motor Block: Absent Post Op Complications Complications None Follow Up Care/Instructions Patient Instructions None needed. Anesthesia/Patient Condition Patient is doing well, no complaints, stable vital signs, no apparent adverse anesthesia problems. No complications reported per nursing. JAYME PLASCENCIA CRNA Apr 01, 2019 08:33
--- NOTE | 2019-04-01 09:00 | NUR ---
TENA WAKEFIELD RN TO THE ROOM TO EXPLAIN PLAN OF CARE REGARDING . (CHEST X-RAY AND CLOSE MONITORING UNDER THE WARMER IN THE NURSERY.) PT IMMEDIATELY CONCERNED AND REASSURED OF NEED TO EVALUATE INFANT AND WILL ALLOW HER TO COME INTO NURSERY WHEN SHE DESIRES.
[2019-04-01 09:06] VITALS: BP 139/87
--- NOTE | 2019-04-01 09:10 | NUR ---
FOB TO NURSERY TO SEE .
[2019-04-01] MEDS: DOCUSATE SODIUM 100 MG (COLACE) CAP PO SCH (09:13)
--- NOTE | 2019-04-01 09:20 | NUR ---
MOM TO NURSERY TO SEE .
--- NOTE | 2019-04-01 09:22 | NUR ---
CM/SS completed a DCF report, intake # [id number], due to concerns of past DCF involvement, drug history and paternity.
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
--- NOTE | 2019-04-01 10:45 | NUR ---
DR. TAVERAS BACK TO THE HOSPITAL TO TALK TO PARENTS ABOUT PLAN TO TRANSFER INFANT.
--- NOTE | 2019-04-01 10:58 | NUR ---
CM/SS spoke with the patient and her S/O, they stated they are not interested in any community resources. Will continue to follow.
--- NOTE | 2019-04-01 11:03 | Discharge Inst-Women's Service ---
Discharge Inst-Women's Serv Depart Medication/Instructions Instructions For pain or cramping he may take ibuprofen 200 mg and take 2 or 3 tablets every 6 hours as needed. Problems Reviewed?: Yes Consults/Follow Up Additional Follow Up: Yes ( at [facility] in 6 weeks. Onur ) Activity Activity: Activity as Tolerated Driving Instructions: You May Drive Nothing Inside Vagina: No Justin (For 6 weeks) Diet Discharge Diet: Regular Diet Return to The Hospital For: As below Symptoms to Report to : Bleeding Excessive, Pain Increased, Fever Over 101 Degrees F, Vaginal Discharge Foul For Any Problems or Questions: Contact Your Physician WILLIAM TAVERAS MD Apr 01, 2019 11:02
--- NOTE | 2019-04-01 11:07 | Discharge Summary ---
Diagnosis/Chief Complaint Date of Admission Mar 31, 2019 at 05:55 Date of Discharge April 01, 2019 Admission Diagnosis Admission Diagnosis 1. Intrauterine at term 39 weeks 5 days 2. Maternal GBS positive at 36 weeks vaginally Discharge Diagnosis 1. Intrauterine at term 39 weeks 5 days 2. Maternal GBS positive at 36 weeks vaginally Chief Complaint/HPI Chief Complaint/HPI 33-year-old 5 who initially presented to labor and delivery during the morning of March 31, 2019 at 39 weeks 5 days gestation for induction of labor. Her care was essentially unremarkable. She was noted to be positive for GBS by vaginal culture at 36 weeks. Upon presentation she was noted to have a contraction pattern every 4 minutes. Discharge Summary-OBS Procedures 1. Epidural per anesthesia 2. Spontaneous vaginal delivery 3. Repair of midline episiotomy Discharge Physical Examination Allergies: Coded Allergies: No Known Drug Allergies (Unverified , 08/26/17) Vitals & I&Os Vital Sign - Last 12Hours Date Time Temp Pulse Resp B/P (MAP) Pulse Ox O2 Delivery O2 Flow Rate FiO2 04/01/19 09:06 36.8 86 19 139/87 99 Room Air General Appearance: No Acute Distress Respiratory: Clear to Auscultation Cardiovascular: Regular Rate Abdominal: Soft (With uterus firm) Skin: No Rashes Neuro: Normal Speech Hospital Course Was the Problem List Reviewed?: Yes Patient was admitted in the morning of March 31, 2019 for induction of labor. She underwent amniotomy 1 hour after receiving first dose of ampicillin for GBS prophylaxis. Her hemoglobin also at that time was noted to be 11.8. She requested epidural and this was performed shortly after having her membranes ruptured. Fluid was noted to be slightly yellow tinged in color. She required low-dose Pitocin augmentation. Ultimately she went on to completion within 2- 1/2 hours. She delivered a term viable male with Apgars of 8 at 1 minute and 9 at 5 minutes. Following delivery she underwent routine care orders. She had no complications during the remainder of her hospital stay. She had hemoglobin in the morning of April 01 of 9.6. She was tolerating regular diet and had urinated without difficulty. She was without any shortness of breath or leg pain. Patient was felt ready for dismissal during the afternoon of April 01, 2019. Her son however was noted to have increased respiratory effort and murmur which required him to be transferred to [facility]. Labs Laboratory Tests 04/01/19 05:18: White Blood Count 14.9H, Red Blood Count 3.37L, Hemoglobin 9.6L, Hematocrit 29L, Mean Corpuscular Volume 85, Mean Corpuscular Hemoglobin 29, Mean Corpuscular Hemoglobin Concent 34, Red Cell Distribution Width 14.1, Platelet Count 238, Mean Platelet Volume 10.7H, Neutrophils (%) (Auto) 73, Lymphocytes (%) (Auto) 19, Monocytes (%) (Auto) 7, Eosinophils (%) (Auto) 1, Basophils (%) (Auto) 0, Neutrophils # (Auto) 10.9H, Lymphocytes # (Auto) 2.9, Monocytes # (Auto) 1.0, Eosinophils # (Auto) 0.2, Basophils # (Auto) 0.0 Discharge Instructions to patient/family Please see electronic discharge instructions given to patient. Discharge Medications Reviewed and agree with Discharge Medication list on patient's Discharge Instruction sheet Clinical Quality Measures DVT/VTE Risk/Contraindication: Risk Factor Score Per Nursin RFS Level Per Nursing on Admit: 3=High WILLIAM TAVERAS MD Apr 01, 2019 11:07
--- NOTE | 2019-04-01 11:15 | NUR ---
PARENTS TO NURSERY TO SEE .
--- NOTE | 2019-04-01 12:00 | NUR ---
TRANSPORT TEAM HERE.
[2019-04-01] MEDS ORDERED: MEASLES,MUMPS,RUBELLA 1 EA INJ ONE (12:07)
--- NOTE | 2019-04-01 12:10 | NUR ---
PARENTS BACK TO ROOM.
--- NOTE | 2019-04-01 12:27 | NUR ---
RHOGAM 1 VIAL IM IN RIGHT VG SITE. SITE CLEAR.
--- NOTE | 2019-04-01 12:28 | NUR ---
MMR GIVEN SUBQ IN LEFT UPPER ARM. SITE CLEAR.
--- NOTE | 2019-04-01 12:30 | NUR ---
NICU TO PT ROOM WITH ALLOWING PARENTS TO TOUCH . TALKING WITH PARENTS. NICU TRANSPORT TEAM DEPARTED FROM . MOM PLANS TO GO LATER AFTER LUNCH.
[2019-04-01 12:46] VITALS: BP 135/91
--- NOTE | 2019-04-01 13:00 | NUR ---
DISCHARGE INSTRUCTIONS REVIEWED WITH COPY TO PT. STATES UNDERSTANDING OF ALL INSTRUCTIONS AND NEED TO F/U SCHEDULED AND NEEDED. PLAN TO ORDER STORK MEAL PRIOR TO LEAVING.
--- NOTE | 2019-04-01 14:12 | NUR ---
CM/SS message left for SS at [facility].
--- NOTE | 2019-04-01 14:15 | NUR ---
EATING STORK MEAL.
[2019-04-01 14:25] VITALS: BP 123/72
[2019-04-01 14:35] VITALS: BP 123/72
--- NOTE | 2019-04-01 14:35 | NUR ---
DISMISSED AMB FROM [facility] IN STABLE CONDITION TO [facility]ILY [facility] BY DELBERT JO.
== END 2019-04-01 14:35 | disposition home or self-care (01) | DRG 807 ==
LOC: LDRP 05:55 → UNDODISIN 16:45
PROVIDERS: ADMIT Family Medicine; ATTEND Family Medicine
PROC: 10E0XZZ Delivery of Products of Conception, External Approach (ICD-10-PCS; principal; 2019-03-31)
PROC: 0W8NXZZ Division of Female Perineum, External Approach (ICD-10-PCS; 2019-03-31)
PROC: 10907ZC Drainage of Amniotic Fluid, Therapeutic from Products of Conception, Via Natural or Artificial Opening (ICD-10-PCS; 2019-03-31)
DX: O99.824 Streptococcus B carrier state complicating childbirth (principal); Z3A.39 39 weeks gestation of pregnancy; Z37.0 Single live birth; Z23 Encounter for immunization
CPT/HCPCS: 36415; 80306; 83033; 85007; 85025; 85027; 86850; 86900; 86901; 90707

== ENCOUNTER → 2019-10-19 | Outpatient (CLI) | payer SELFPAY ==
[~2019-10-19] MED LIST changes: +CALC10009 PO; +PREN-142 PO
--- NOTE | 2019-10-19 16:29 | Diagnostic Imaging Report ---
CLINICAL INDICATION: Patient with pseudotumor cerebri, headaches behind right eye. Patient has right lower leg swelling, bilateral arm and hand numbness and right ear problems and memory loss. EXAM: Axial CT scan of the brain without IV contrast contrast. Auto Exposure Controls were utilized during the CT exam to meet ALARA standards for radiation dose reduction. COMPARISON: None. FINDINGS: There is skull streak artifact which obscures portion of the brainstem, posterior fossa, and portions of the brain and skull base. There is no evidence of acute cerebral infarct, intracranial hemorrhage, or gross mass effect. The brain parenchymal volume appears appropriate for patient's age. There is normal caldera-white matter distinction. There is no significant midline shift or herniation. There is no evidence of hydrocephalus. The basal cisterns are unremarkable. The skull, extracranial soft tissue, and orbits are unremarkable. The paranasal sinuses are unremarkable. Temporal bones show no significant abnormality. IMPRESSION: Unremarkable CT scan of the brain as visualized. Of note, this is a limited CT brain to evaluate the optic nerves, globes, suprasellar cistern, sella, and posterior fossa regions. MRI of the brain and orbits with and without IV contrast may help better evaluate, if further evaluation is necessary. Ophthalmoscopy would help better evaluate if there is concern for papilledema. Dictated by: Dictated on workstation # [id number]
== END ==
LOC: RAD 15:52
PROVIDERS: ATTEND Physician Assistant
DX: G93.2 Benign intracranial hypertension (principal)
CPT/HCPCS: 70450

== ENCOUNTER 2022-03-08 17:26 | Emergency (ER) | payer MEDICAID ==
[~2022-03-08] VITALS: Ht 162 cm; Wt 110.0 kg
--- NOTE | 2022-03-08 17:58 | ED Upper Extremity ---
General Chief Complaint: Upper Extremity Stated Complaint: FALL/RIGHT HAND PAIN/SWELLING Nursing Triage Note: Pt here with right hand pain, specifically to digits 3-5. States she fell into something and tried to catch herself and feels as if her hand and digits got jammed. C/o numbness and tingling with pain x 3 days. Source: patient Exam Limitations: no limitations History of Present Illness Date Seen by Provider: Mar 08, 2022 Time Seen by Provider: 17:53 Initial Comments Patient presents for right hand pain. She states she injured it 3 days ago and it has been bothering her since then. She reports she "didn't really fall, but I caught myself and it hurt it." Onset: just prior to arrival Method of Injury: fell Allergies and Home Medications Allergies Coded Allergies: No Known Drug Allergies (Unverified , 08/26/17) Patient Home Medication List Home Medication List Reviewed: Yes Calcium Carbonate (Tums Ultra) 400 Mg Tab.chew, 400 MG PO PRN, (Reported) Entered as Reported by: OBI DOTSON on 03/31/19608 Vit No.124/Iron/FA ( Vitamin Tablet) 1 Each Tablet, 1 EACH PO DAILY, (Reported) Entered as Reported by: OBI DOTSON on 03/31/19608 Review of Systems Constitutional: no symptoms reported EENTM: no symptoms reported Respiratory: no symptoms reported Cardiovascular: no symptoms reported Gastrointestinal: no symptoms reported Musculoskeletal: other (right hand pain) Skin: no symptoms reported Psychiatric/Neurological: No Symptoms Reported Past Sgnlkco-Menarj-Pjhwqz Hx Immunizations Up To Date Tetanus Booster (TDap): Unknown PED Vaccines UTD: Yes Seasonal Allergies Seasonal Allergies: No Past Medical History Surgeries: Yes (eye - 15 yrs ago) Eye Surgery Respiratory: No Cardiac: No Neurological: No Expected Date of Delivery: Jul 09, 2022 Female Reproductive Disorders: Denies Sexually Transmitted Disease: Yes (trich - tx - early aug. ) HIV/AIDS: No Genitourinary: No Gastrointestinal: No Musculoskeletal: No Endocrine: No HEENT: No Glaucoma Loss of Vision: Bilateral Hearing Impairment: Denies Cancer: No Psychosocial: No Anxiety, Depression Integumentary: No Blood Disorders: No Adverse Reaction/Blood Tranf: No Family Medical History Alcoholism 19 MOTHER Physical Exam Vital Signs Vital Signs - First Documented 03/08/22 17:46 Temp 37.2 Pulse 102 Resp 20 B/P (MAP) 164/80 (108) Pulse Ox 97 O2 Delivery Room Air Capillary Refill : Less Than 3 Seconds Height, Weight, BMI Height: 5'4.00" Weight: 245lbs. 0.0oz. 111.291365jp; 41.00 BMI Method:Stated General Appearance: WD/WN, no apparent distress HEENT: PERRL/EOMI, normal ENT inspection, TMs normal Neck: non-tender, full range of motion Cardiovascular: regular rate, rhythm Respiratory: chest non-tender, lungs clear Gastrointestinal: non tender, soft Back: normal inspection Hand: soft tissue tenderness Neurologic/Psychiatric: customer service engineer II-XII nml as tested, no motor/sensory deficits, oriented x 3 Skin: normal color, warm/dry Progress/Results/Core Measures Results/Orders My Orders Orders - RENEE PARK Hand, Right, 3 Views (03/08/22 17:52) Ketorolac Injection (Toradol Injection) (03/08/22 18:00) Acetaminophen Tablet (Tylenol Tablet) (03/08/22 18:00) Medications Given in ED Current Medications Medications Dose Ordered Sig/Brennen Route Start Time Stop Time Status Last Admin Dose Admin Acetaminophen 1,000 mg ONCE ONCE PO 03/08/22 18:00 03/08/22 18:01 DC 03/08/22 18:11 1,000 MG Vital Signs/I&O 03/08/22 17:46 Temp 37.2 Pulse 102 Resp 20 B/P (MAP) 164/80 (108) Pulse Ox 97 O2 Delivery Room Air Blood Pressure Mean: 108 Departure Communication (Admissions) No evidence or suspicion of fracture, dislocation or arterial injury. Patient will be treated symptomatically with Tylenol, ice and compression since she is 22 weeks . Impression Primary Impression: Contusion of right hand Disposition: HOME, SELF-CARE Condition: Stable Departure-Patient Inst. Decision time for Depature: 18:25 Referrals: [facility] (PCP/Family) Primary Care Physician Patient Instructions: Contusion (DC) RENEE PARK Mar 08, 2022 17:58
[2022-03-08] MEDS ORDERED: KETOROLAC 30 MG/ML VIAL IM ONE (18:00)
[2022-03-08] MEDS ORDERED: ACETAMINOPHEN 500 MG TAB (TYLENOL) PO ONE (18:00)
--- NOTE | 2022-03-08 18:13 | Diagnostic Imaging Report ---
INDICATION: Right hand pain post fall. Numbness and tingling with pain x3 days. TECHNIQUE: Three views of the right hand. CORRELATION STUDY: None FINDINGS: There is normal alignment and appearance of the osseous structures of the hand. The joint spaces are maintained. There is no acute fracture. Soft tissues are unremarkable. IMPRESSION: 1. Negative for acute bony abnormality of the right hand. Dictated by: Dictated on workstation # [id number]
[2022-03-08 18:40] VITALS: BP 164/80
== END 2022-03-08 18:40 | disposition home or self-care (01) ==
LOC: EDUNIT# 17:26 → ER 17:30
DX: O9A.212 Injury, poisoning and certain other consequences of external causes complicating pregnancy, second trimester (principal); S60.221A Contusion of right hand, initial encounter; Z3A.22 22 weeks gestation of pregnancy; Z28.310 Unvaccinated for COVID-19; W18.30XA Fall on same level, unspecified, initial encounter
CPT/HCPCS: 73130

== ENCOUNTER 2022-06-09 11:45 | Outpatient (CLI) | payer MEDICAID ==
[~2022-06-09] VITALS: Ht 165.1 cm; Wt 105.6 kg
[2022-06-09] VITALS (19 sets, daily range): BP systolic 140–175; BP diastolic 70–109
[2022-06-09 12:39] LABS: BASOPHILS % (AUTO) 0 % (0-10); EOSINOPHILS # (AUTO) 0.2 10^3/uL (0.0-0.3); EOSINOPHILS % (AUTO) 2 % (0-10); HEMATOCRIT 37 % (35-52); HEMOGLOBIN 12.3 g/dL (11.5-16.0); LYMPHOCYTES # (AUTO) 1.9 10^3/uL (1.0-4.0); LYMPHOCYTES % (AUTO) 15 % (12-44); MEAN CORPUSCULAR HEMOGLOBIN 26 pg (25-34); MEAN CORPUSCULAR HGB CONC 33 g/dL (32-36); MEAN CORPUSCULAR VOLUME 79 fL (80-99); MEAN PLATELET VOLUME 9.6 fL (9.0-12.2); MONOCYTES # (AUTO) 0.7 10^3/uL (0.0-1.0); MONOCYTES % (AUTO) 6 % (0-12); NEUTROPHILS # (AUTO) 9.8 10^3/uL (1.8-7.8); NEUTROPHILS % (AUTO) 77 % (42-75); PLATELET COUNT 309 10^3/uL (130-400); WHITE BLOOD COUNT 12.8 10^3/uL (4.3-11.0)
[2022-06-09 12:50] LABS: BILIRUBIN,URINE NEGATIVE (NEGATIVE); CLARITY,URINE CLEAR; COLOR,URINE YELLOW; GLUCOSE, URINE (UA) NEGATIVE (NEGATIVE); KETONES,URINE NEGATIVE (NEGATIVE); LEUKOCYTE ESTERASE ,URINE TRACE (NEGATIVE); NITRITE,URINE POSITIVE (NEGATIVE); PROTEIN,URINE 1+ (NEGATIVE)
[2022-06-09] MEDS ORDERED: LABETALOL HCL 20 MG/4 ML VIAL IV ONE (13:00)
[2022-06-09] MEDS ORDERED: BETAMETHASONE ACE/NA PHOS 6 MG/ML (CELESTONE SOLUSPAN) IM SCH (13:00)
[2022-06-09 13:02] LABS: BACTERIA,URINE LARGE /HPF
[2022-06-09 13:08] LABS: ALBUMIN 2.5 GM/DL (3.2-4.5); POTASSIUM 3.4 MMOL/L (3.6-5.0)
[2022-06-09 13:09] LABS: CALCIUM 8.3 MG/DL (8.5-10.1)
[2022-06-09 13:10] LABS: TOTAL PROTEIN 5.5 GM/DL (6.4-8.2)
[2022-06-09 13:12] LABS: BILIRUBIN,TOTAL 0.4 MG/DL (0.1-1.0)
[2022-06-09 13:14] LABS: CREATININE SERUM 0.65 MG/DL (0.60-1.30)
[2022-06-09] MEDS ORDERED: LABETALOL HCL 20 MG/4 ML VIAL ONE (13:30)
--- NOTE | 2022-06-09 14:23 | Anesthesia-Procedure Note ---
Procedures/Interventions Procedure Start/Stop/Diagnosis Date of Procedure: Jun 09, 2022 Start Time: 13:30 Brief History Difficult IV start Stop Time: 13:50 Central Line/IV Access IV : Location: Left (ACx1, FAx1), Right (FA x 2) IV Catheter Type: Peripheral IV IV Catheter Gauge: 20 Progress Multiple attempts to start an IV both sides. US guidance left forearm. On this attempt a male (assumed to be significant other) entered the room and expressed his unhappiness about the patient need to be stuck multiple time. Took a threatening tone as I was working on attempting the IV. Told me I should be certified to do this procedure, then asked how long I had been doing this. When told I have been doing this for 16 years, He stated that he did not believe that. Postured by door. I then aborted this attempt, apologized to the patient that and explained that I would no longer attempt her IV start while being spoken too as such. Removed myself and the US from the room. Procedure Conclusion Unsuccessful IV attempt. GASPER MOTTA CRNA Jun 09, 2022 14:23
[2022-06-09] MEDS ORDERED: CALCIUM CARBONATE 500 MG (TUMS) TAB.CHEW PO ONE (14:45)
--- NOTE | 2022-06-09 14:56 | Short Stay Summary ---
History of Present Illness History of Present Illness Reason for visit/HPI 36-year-old G7 T4 A2 L4 who presented to women services during the early afternoon of June 09, 2022 not feeling well. She is at 35 weeks 5 days gestation based upon early ultrasound. Her EDC is July 09, 2022. Her care has been complicated by diet-controlled gestational diabetes. She was noted to have elevated blood pressure when on OB floor. Date of Admission June 09, 2022 Date of Discharge June 09, 2022 Time Seen by Provider: 14:30 Attending Physician [place] Admitting Physician Admitting Physician: Attending Physician: William Taveras MD Consult Allergies and Home Medications Allergies Coded Allergies: No Known Drug Allergies (Unverified , 08/26/17) Patient Home Medication List Home Medication List Reviewed: Yes Calcium Carbonate (Tums Ultra) 400 Mg Tab.chew, 400 MG PO PRN, (Reported) Entered as Reported by: OBI DOTSON on 03/31/19 06 Vit No.124/Iron/FA ( Vitamin Tablet) 1 Each Tablet, 1 EACH PO DAILY, (Reported) Entered as Reported by: OBI DOTSON on 03/31/19 06 Past Aartzzz-Uhzhlq-Ktvnzz Hx Patient Social History Marrital Status: civil union Number of Children: 4 Alcohol Beverage of Choice: Beer Drug of Choice: HX OF: MARIJUA[place] - "THE OTHER DAY" Smoking Status: Never a Smoker Recent Hopitalizations: No Immunizations Up To Date Tetanus Booster (TDap): Unknown Pediatric: Yes Seasonal Allergies Seasonal Allergies: No Surgeries Yes (eye - 15 yrs ago) Eye Surgery Respiratory No Cardiovascular No Neurological No Reproductive System Expected Date of Delivery: Jul 09, 2022 Hx : 7 Hx Para: 4 Hx Total # of Abortions (Spona: 2 Sexually Transmitted Disease: Yes (trich - tx - early aug. ) HIV/AIDS: No Female Reproductive Disorders: Denies Genitourinary No Gastrointestinal No Musculoskeletal No Endocrine History of Endocrine Disorders: No HEENT History of HEENT Disorders: No HEENT Disorders: Glaucoma Loss of Vision: Bilateral Hearing Impairment: Denies Cancer No Psychosocial History of Psychiatric Problem: No Behavioral Health Disorders: Anxiety, Depression Integumentary History of Skin or Integumenta: No Blood Transfusions History of Blood Disorders: No Adverse Reaction to a Blood Tr: No Family Medical History Family Hx: Alcoholism 19 MOTHER Review of Systems Constitutional: see HPI Physical Exam Vital Signs Vital Signs - First Documented 06/09/22 12:25 Temp 36.5 Pulse 90 Resp 20 B/P (MAP) 173/101 Pulse Ox 99 O2 Delivery Room Air Capillary Refill : Less Than 3 Seconds Height, Weight, BMI Height: 5'4.00" Weight: 245lbs. 0.0oz. 111.365995qc; 41.00 BMI Method:Stated General Appearance: No Apparent Distress Eyes: Bilateral Eye Normal Inspection Neck: Supple Respiratory: Lungs Clear Cardiovascular: Regular Rate, Rhythm Gastrointestinal: Soft (With uterus nontender) Rectal: Deferred Comments Cervical exam revealed her to be 1 cm and vertex presentation. Cervix is noted to be high and presenting part ballotable. Short Stay Diagnosis Discharge Diagnosis-Short Stay Admission Diagnosis: 1. Intrauterine at 35 weeks 5 days gestation 2. Preeclampsia 3. Gestational diabetes diet controlled Final Discharge Diagnosis: 1. Intrauterine at 35 weeks 5 days gestation 2. Preeclampsia 3. Gestational diabetes diet controlled Conclusion Labs Laboratory Tests 06/09/22 12:30: White Blood Count 12.8H, Red Blood Count 4.69, Hemoglobin 12.3, Hematocrit 37, Mean Corpuscular Volume 79L, Mean Corpuscular Hemoglobin 26, Mean Corpuscular Hemoglobin Concent 33, Red Cell Distribution Width 16.9H, Platelet Count 309, Mean Platelet Volume 9.6, Immature Granulocyte % (Auto) 1, Neutrophils (%) (Auto) 77H, Lymphocytes (%) (Auto) 15, Monocytes (%) (Auto) 6, Eosinophils (%) (Auto) 2, Basophils (%) (Auto) 0, Neutrophils # (Auto) 9.8H, Lymphocytes # (Auto) 1.9, Monocytes # (Auto) 0.7, Eosinophils # (Auto) 0.2, Basophils # (Auto) 0.0, Immature Granulocyte # (Auto) 0.1, Sodium Level 135, Potassium Level 3.4L, Chloride Level 106, Carbon Dioxide Level 19L, Anion Gap 10, Blood Urea Nitrogen 5L, Creatinine 0.65, Estimat Glomerular Filtration Rate 116, BUN/Creatinine Ratio 8, Glucose Level 111H, Calcium Level 8.3L, Corrected Calcium 9.5, Total Bilirubin 0.4, Aspartate Amino Transf (AST/SGOT) 23, Alanine Aminotransferase (ALT/SGPT) 24, Alkaline Phosphatase 242H, Total Protein 5.5L, Albumin 2.5L 06/09/22 12:35: Urine Color YELLOW, Urine Clarity CLEAR, Urine pH 6.0, Urine Specific [place] 1.020, Urine Protein 49H, Urine Glucose (UA) NEGATIVE, Urine Ketones NEGATIVE, Urine Nitrite POSITIVEH, Urine Bilirubin NEGATIVE, Urine Urobilinogen 1.0, Urine Leukocyte Esterase TRACEH, Urine RBC (Auto) NEGATIVE, Urine RBC NONE, Urine WBC 2-5, Urine Squamous Epithelial Cells 2-5, Urine Crystals , Urine Bacteria LARGEH , Urine Casts NONE, Urine Mucus NEGATIVE, Urine Culture Indicated YES, Urine Creatinine 108, Urine Protein/Creatinine Ratio 0.45 Conclusion/Plan Patient was evaluated at 1430. Laboratory had previously been ordered and platelet count as well as liver enzymes are within normal range. Her poor urine protein creatinine ratio was noted to be 0.45. She had received labetalol 20 mg IV after her third blood pressure revealed 175/109. Her blood pressure decr eased to 160/101 and ultimately prior to notifying [facility] 143/88. I spoke with patient as well as her significant other and since there is high probability of delivery and being would prefer to have neonatology available. They were in agreement and plan on transfer. I spoke with Dr. Betty Romero at 1440 and she agreed for transfer. We will transfer patient by EMS to direct admission to birthing center. WILLIAM TAVERAS MD Jun 09, 2022 14:56
[2022-06-09] MEDS ORDERED: D5 LR IV SOLUTION 1,000 ML IV ONE (15:44)
[2022-06-09] MEDS ORDERED: MAGNESIUM 4 GM/100 ML IVPB 100 ML IV ONE ×2 (15:44→15:45)
[2022-06-09] MEDS ORDERED: D5 LR IV SOLUTION 1,000 ML IV SCH (15:45)
[2022-06-09] MEDS ORDERED: MAGNESIUM 2 GM/50 ML IVPB 50 ML IV ONE (15:45)
[2022-06-09] MEDS ORDERED: FERR-84 PO (17:19)
== END 2022-06-09 16:25 ==
LOC: LDRP 11:45 → WSo 11:45 → WS 16:12 → LDRP 16:12 → WSo 16:25
PROVIDERS: ATTEND Family Medicine
DX: Z34.90 Encounter for supervision of normal pregnancy, unspecified, unspecified trimester (principal); Z3A.00 Weeks of gestation of pregnancy not specified
CPT/HCPCS: 36410; 76937; 80053; 81000; 82570; 84156; 85025; 87088; C1751; 36415; 96372; 96374; 96375; 99214

== ENCOUNTER 2023-05-20 22:21 | Emergency (ER) | payer MEDICAID ==
[~2023-05-20] VITALS: Ht 162.5 cm; Wt 96.6 kg
[~2023-05-20 22:21] MED LIST changes: +FERR-84 PO
--- NOTE | 2023-05-20 23:40 | ED Upper Extremity ---
General Chief Complaint: Upper Extremity Stated Complaint: FALL/LEFT ARM PAIN Nursing Triage Note: TO ED POV AMBULATORY TO ROOM 8 FELL ON PORCH WITH C/O LEFT ARM PAIN. PT ABLE TO MAKE A FIST, SWELLING NOTED TO FOREARM, NO OTC'S PRIOR TO ARIVAL. Source: patient Exam Limitations: no limitations History of Present Illness Date Seen by Provider: May 20, 2023 Time Seen by Provider: 23:07 Initial Comments This 37 year old woman presents to the ER view private vehicle with left forearm injury after falling. She had been chasing her dog and fell into a landscaping timber coming up the porch. She denies any other significant injury. Allergies and Home Medications Allergies Coded Allergies: No Known Drug Allergies (Unverified , 08/26/17) Patient Home Medication List Home Medication List Reviewed: Yes Calcium Carbonate (Tums Ultra) 400 Mg Tab.chew, 400 MG PO PRN, (Reported) Entered as Reported by: OBI DOTSON on 03/31/19 06 Ferrous Sulfate (Iron) 325 Mg (65 Mg Iron) Tablet, 325 MG PO DAILY, (Reported) Entered as Reported by: KWESI CASE on 06/09/22 1719 Vit No.124/Iron/FA ( Vitamin Tablet) 1 Each Tablet, 1 EACH PO DAILY, (Reported) Entered as Reported by: OBI DOTSON on 03/31/19608 Review of Systems Constitutional: no symptoms reported EENTM: no symptoms reported Respiratory: no symptoms reported Cardiovascular: no symptoms reported Gastrointestinal: no symptoms reported Genitourinary: no symptoms reported : No Musculoskeletal: see HPI Skin: no symptoms reported Psychiatric/Neurological: No Symptoms Reported Past Jzjyuyp-Ecbrmi-Yonjxx Hx Patient Social History Tobacco Use?: No Substance use?: Yes Substance type: Marijuana Substance frequency: Once in a while Immunizations Up To Date Tetanus Booster (TDap): Unknown PED Vaccines UTD: Yes Influenza Vaccine Up-to-Date: No; Not Current First/Initial COVID19 Vaccinat: STATES X1 Seasonal Allergies Seasonal Allergies: No Past Medical History Surgeries: Yes (eye - 15 yrs ago) Eye Surgery Respiratory: No Cardiac: Yes (pre-eclampsia) Neurological: No Last Menstrual Period: Apr 22, 2023 Female Reproductive Disorders: Denies Sexually Transmitted Disease: Yes (trich - tx - early aug. ) HIV/AIDS: No Genitourinary: No Gastrointestinal: No Musculoskeletal: No Endocrine: No HEENT: No Glaucoma Loss of Vision: Bilateral Hearing Impairment: Denies Cancer: No Psychosocial: No Anxiety, Depression Integumentary: No Blood Disorders: No Adverse Reaction/Blood Tranf: No Family Medical History Alcoholism 19 MOTHER Physical Exam Vital Signs Vital Signs - First Documented 05/20/23 22:36 Temp 36.8 Pulse 100 Resp 18 B/P (MAP) 152/102 (119) O2 Delivery Room Air Capillary Refill : Less Than 3 Seconds Height, Weight, BMI Height: 5'4.00" Weight: 245lbs. 0.0oz. 111.624815wr; 36.00 BMI Method:Stated General Appearance: WD/WN, no apparent distress HEENT: normal ENT inspection Neck: normal inspection Shoulder: normal inspection, non-tender, no evidence of injury, normal ROM Elbow/Forearm: Left (swelling and TTP of the lateral and dorsal aspects of the proximal left forearm), pain Wrist: Yes normal inspection, Yes non-tender, Yes no evidence of injury, Yes normal ROM Hand: normal inspection, non-tender, no evidence of injury, normal ROM, Left Neurologic/Tendon: normal sensation, normal motor functions, normal tendon functions Neurologic/Psychiatric: no motor/sensory deficits, alert, normal mood/affect, oriented x 3 Skin: normal color, warm/dry Progress/Results/Core Measures Results/Orders My Orders Orders - TAMERA RICE MD Forearm, Left, 2 Views (05/20/23 23:12) Vital Signs/I&O Blood Pressure Mean: 119 Diagnostic Imaging Diagonstic Imaging: Xray Plain Films/CT/US/NM/MRI: forearm Comments X-rays viewed by me. Report not yet available. No acute abnormalities were appreciated by my interpretation. Departure Impression Primary Impression: Contusion of left forearm Qualified Codes: S50.12XA - Contusion of left forearm, initial encounter Additional Impression: Fall on same level Qualified Codes: W18.30XA - Fall on same level, unspecified, initial encounter Disposition: 01 HOME, SELF-CARE Condition: Stable Departure-Patient Inst. Decision time for Depature: 23:38 Referrals: [facility] (PCP/Family) Primary Care Physician Patient Instructions: Contusion (DC) Add. Discharge Instructions: You may ice the affected area and 20-minute intervals to reduce pain and swelling. You may use Tylenol (acetaminophen) up to 1000 mg every 6 hours as needed and/or ibuprofen up to 600 mg every 6 hours as needed for pain. Gradually increase level of activity as pain allows. Return to care if you are not improving rapidly over the next several days as expected. All discharge instructions reviewed with patient and/or family. Voiced understanding. Work/School Note: Work Release Form Date Seen in the Emergency Department: May 20, 2023 Return to Work: May 21, 2023 Other Restrictions Listed Below: Gradually increase level of activity with left arm as pain allows. TAMERA RICE MD May 20, 2023 23:40
[2023-05-20 23:48] VITALS: BP 152/102
--- NOTE | 2023-05-21 07:17 | Diagnostic Imaging Report ---
INDICATION: forearm pain TECHNIQUE: 2 views of the left forearm CORRELATION STUDY: None FINDINGS: The radius and ulna have an unremarkable appearance. The visualized portions of the elbow and wrist are unremarkable. Soft tissues are unremarkable. IMPRESSION: 1. Negative for acute bony abnormality of the forearm. Dictated by: Dictated on workstation # [id number]
== END 2023-05-20 23:48 | disposition home or self-care (01) ==
LOC: EDUNIT# 22:21 → ER 22:23
DX: S50.12XA Contusion of left forearm, initial encounter (principal); W18.30XA Fall on same level, unspecified, initial encounter
CPT/HCPCS: 73090